=== PATIENT | male | born 1960 | race Two or more races ===

== ENCOUNTER 2020-02-07 07:00 | Day surgery (SDC) | payer OTHER ==
[~2020-02-07 07:00] MED LIST: CARDURA XL4 MG PO; CLONAZEPAM0.5 MG PO; CLONAZEPAM2 MG PO; COZAAR100 MG PO; DOXEPIN HC10 MG/1 ML PO
[2020-02-07] MEDS ORDERED: NEURONTIN300 MG PO (11:19)
[2020-02-07] MEDS ORDERED: MIRALAX17 GM PO (11:19)
[2020-02-07] MEDS ORDERED: ULTRAM50 MG PO (11:19)
[2020-02-07] MEDS ORDERED: TYLENOL ARTHRI650 MG PO (11:19)
== END 2020-02-07 16:00 | disposition home or self-care (01) ==
LOC: CIR.AMB 07:00
PROVIDERS: ATTEND Surgery
DX: K40.90 Unilateral inguinal hernia, without obstruction or gangrene, not specified as recurrent (principal); Z20.828 Contact with and (suspected) exposure to other viral communicable diseases